=== PATIENT | male | born 1980 ===

== ENCOUNTER 2017-01-07 13:11 | Emergency (ER) | payer OTHER ==
[2017-01-07 13:25] VITALS: RESP 16
--- NOTE | 2017-01-07 14:12 | C.PDOC ---
History Of Present Illness 36 year old male presents to the ED seeking a wound check of the left index finger. Patient states he cut his finger with a saw while at work three days ago and was seen in the hospital. He denies any pain or new trauma. Time Seen by Provider: 01/07/17 13:30 Chief Complaint (Nursing): Abnormal Skin Integrity History Per: Patient History/Exam Limitations: no limitations Onset/Duration Of Symptoms: Days (initial injury occurred three days ago) Current Symptoms Are (Timing): Gone Location Of Injury: Left: Hand (index finger) Quality Of Symptoms: denies: Painful, Itching, Swollen, Draining Recent travel outside of the [place]: No Additional History Per: Prior Records Past Medical History Reviewed: Historical Data, Nursing Documentation, Vital Signs Vital Signs: Last Vital Signs Temp 98.0 F 01/07/17 14:16 Pulse 86 01/07/17 14:16 Resp 16 01/07/17 14:16 BP 122/72 01/07/17 14:16 Pulse Ox 99 01/07/17 14:16 Family History: States: Unknown Family Hx - Social History Hx Alcohol Use: No Hx Substance Use: No - Immunization History Hx Tetanus Toxoid Vaccination: Yes (11/2016) Review Of Systems Constitutional: Negative for: Fever, Chills Cardiovascular: Negative for: Chest Pain Respiratory: Negative for: Shortness of Breath Gastrointestinal: Negative for: Nausea, Vomiting Musculoskeletal: Positive for: Other (wound check of laceration to left index finger. Avulsion to tip of left index finger and some of the finger nail. Wound has non-adhesive dressing. ). Negative for: Hand Pain Physical Exam - Physical Exam Appears: Non-toxic, No Acute Distress Skin: Warm, Dry Head: Atraumatic Eye(s): bilateral: Normal Inspection, PERRL, EOMI Oral Mucosa: Moist Neck: Supple Chest: Symmetrical Cardiovascular: Rhythm Regular Respiratory: No Accessory Muscle Use Extremity: Capillary Refill (good capillary refill, less than two seconds ), Other (Clean wound and dressing. Finger tip amputation. No sutures and no active bleeding. ) Neurological/Psych: Oriented x3, Normal Speech, Normal Cognition, Normal Cranial Nerves, Normal Motor, Normal Sensation ED Course And Treatment O2 Sat by Pulse Oximetry: 98 (room air) Progress Note: Wound was washed with sterile saline and redressed with non- adhesive dressing. Disposition Counseled Patient/Family Regarding: Diagnosis, Need For Followup - Disposition Referrals: [facility] at [facility] [Outside] Disposition: HOME/ ROUTINE Disposition Time: 14:10 Condition: STABLE Instructions: Skin Avulsion (ED) Forms: Gen Discharge Inst Serbian - Clinical Impression Clinical Impression: Avulsion of skin of finger - Scribe Statement The provider has reviewed the documentation as recorded by the Scribe Kathrin Coronado All medical record entries made by the Kamronibe were at my direction and personally dictated by me. I have reviewed the chart and agree that the record accurately reflects my personal performance of the history, physical exam, medical decision making, and the department course for this patient. I have also personally directed, reviewed, and agree with the discharge instructions and disposition.
[2017-01-07 14:17] VITALS: BP 122/72; PULSE 86; TEMP 98
[2017-01-07 19:40] VITALS: O2SAT 98
== END 2017-01-07 14:17 | disposition home or self-care (01) ==
LOC: C.ER 13:11
DX: Z48.00 Encounter for change or removal of nonsurgical wound dressing (principal)

== ENCOUNTER 2017-01-11 12:59 | Emergency (ER) | payer OTHER ==
[2017-01-11 13:34] VITALS: BP 100/69; PULSE 88; RESP 20; TEMP 98.6; O2SAT 100
--- NOTE | 2017-01-11 14:39 | C.PDOC ---
History Of Present Illness 36 yo male come in for scheduled wound check of Left middle finger laceration sustained 1 week ago. Pt admits, was seen initially at [facility] where wound was cleaned, received tetanus. Pt come for wound re-check. Otherwise, pt denies fever, chills, wound redness or pain, draining or any other active complaints. Ambulate to Ed for evaluation, not in any apparent distress. Time Seen by Provider: 01/11/17 14:06 Chief Complaint (Nursing): Wound Check History Per: Patient Past Medical History Reviewed: Historical Data, Nursing Documentation, Vital Signs Vital Signs: Last Vital Signs Temp 98.6 F 01/11/17 13:29 Pulse 88 01/11/17 13:29 Resp 20 01/11/17 13:29 BP 100/69 01/11/17 13:29 Pulse Ox 100 01/11/17 13:29 - Medical History PMH: No Chronic Diseases Family History: States: Unknown Family Hx - Social History Hx Alcohol Use: No Hx Substance Use: No - Immunization History Hx Tetanus Toxoid Vaccination: Yes (11/2016) Review Of Systems Except As Marked, All Systems Reviewed And Found Negative. Constitutional: Negative for: Fever, Chills Skin: Positive for: Lesions Neurological: Negative for: Weakness, Numbness Physical Exam - Physical Exam Appears: Well, Non-toxic, No Acute Distress Skin: Normal Color, Warm, Other ((+)Left 3rd distal phalanx well healing open wound tip of finger, covered by dry crust, Mild edema and erythema over Left 3rd tip of finger. No wound draining, no proximal streaking or flactulance. FAROM of left 3rd finger, no neurovascular deficits.) Extremity: Normal ROM (Left hand), No Deformity, No Swelling ED Course And Treatment O2 Sat by Pulse Oximetry: 100 Progress Note: On re-eavluation, pt is afberile, hemodynamicaly stable. non- toxic. Left hand: well healing wound over the tip of Left 3rd finger. No evidence of cellulitis. FAROM, no neurovascular deficits. Pt advised on wound care and ref. to f/u with PMD, hand specialist in 2-3 days for re-eavl. return to ED if any worsening or new changes. Disposition Counseled Patient/Family Regarding: Diagnosis, Need For Followup, Rx Given - Disposition Referrals: Santy Parnell MD [Staff Provider] - Disposition: HOME/ ROUTINE Disposition Time: 14:01 Condition: STABLE Additional Instructions: Clean wound daily with peroxide and apply antibiotic cream topically Follow up with PMD, hand specialist in 2-3 days for re-evaluation. Return to ED if any worsening or new changes. Prescriptions: Bacitracin OINT 1 applic TP BID #1 tube Instructions: Laceration (ED) Forms: [employer] (Kinyarwanda) Print Language: DANISH - Clinical Impression Clinical Impression: Laceration re-check
== END 2017-01-11 14:51 | disposition home or self-care (01) ==
LOC: C.ER 12:59
DX: Z48.00 Encounter for change or removal of nonsurgical wound dressing (principal)

== ENCOUNTER 2017-01-28 12:04 | Emergency (ER) | payer OTHER ==
[2017-01-28 12:18] VITALS: BP 112/72; PULSE 58; RESP 20; TEMP 99; O2SAT 99
--- NOTE | 2017-01-28 12:54 | C.PDOC ---
History Of Present Illness 36 y/o male presents to ED for wound check on left 3rd digit. Patient came to ED to make sure wound is healing properly. No other complaints at this time Time Seen by Provider: 01/28/17 12:37 Chief Complaint (Nursing): Upper Extremity Problem/Injury History Per: Patient History/Exam Limitations: no limitations Onset/Duration Of Symptoms: Days Current Symptoms Are (Timing): Still Present Past Medical History Reviewed: Historical Data, Nursing Documentation, Vital Signs Vital Signs: Last Vital Signs Temp 99 F 01/28/17 12:17 Pulse 58 L 01/28/17 12:17 Resp 20 01/28/17 12:17 BP 112/72 01/28/17 12:17 Pulse Ox 99 01/28/17 13:33 Family History: States: Unknown Family Hx - Social History Hx Alcohol Use: No Hx Substance Use: No - Immunization History Hx Tetanus Toxoid Vaccination: Yes (11/2016) Review Of Systems Except As Marked, All Systems Reviewed And Found Negative. Musculoskeletal: Negative for: Hand Pain Skin: Negative for: Rash Physical Exam - Physical Exam Additional Physical Exam Comments: Constitutional: No acute distress. Head: Normocephalic. Atraumatic. Eyes: PERRL. ENT: Moist mucous membranes. Neck: Supple. Cardiovascular: Regular rate. Radial pulse 2+ bilaterally. Chest: No tenderness. Respiratory: Clear to auscultation bilaterally. GI: Soft. Nontender. Nondistended. Back: No CVA tenderness. Musculoskeletal: No tenderness or swelling of extremities. Skin: No rash. Well healing Avulsion to tip of left 3rd finger Neurologic: Alert, no focal deficit. ED Course And Treatment O2 Sat by Pulse Oximetry: 99 (RA) Pulse Ox Interpretation: Normal Disposition - Disposition Referrals: [facility] [Outside] Disposition: HOME/ ROUTINE Disposition Time: 13:17 Condition: STABLE Instructions: Acute Wound Care (ED) Forms: [employer] (Tuvaluan) - Clinical Impression Clinical Impression: Avulsion of skin of finger - PA / UNIX ANALYST / Resident Statement MD/DO has reviewed & agrees with the documentation as recorded. - Scribe Statement The provider has reviewed the documentation as recorded by the Kamronibguerline Barry All medical record entries made by the Scribe were at my direction and personally dictated by me. I have reviewed the chart and agree that the record accurately reflects my personal performance of the history, physical exam, medical decision making, and the department course for this patient. I have also personally directed, reviewed, and agree with the discharge instructions and disposition.
== END 2017-01-28 13:46 | disposition home or self-care (01) ==
LOC: C.ER 12:04
DX: Z48.00 Encounter for change or removal of nonsurgical wound dressing (principal)

== ENCOUNTER 2018-10-18 17:48 | Emergency (ER) | payer OTHER ==
[2018-10-18 17:53] VITALS: BP 122/77; PULSE 90; TEMP 97.7; O2SAT 97
--- NOTE | 2018-10-18 18:14 | C.PDOC ---
History Of Present Illness Patient is a 38 year old male who presents to the ED c/o penile and suprapubic lesions for the past 5 days. Patient admits to burning and dysuria. VIA TRANS PENILE, SUPRPUBIC LESIONS X 5 DAYS. +BURNING. +DYSURIA EXAM NONTOXIC RN ANTWAN NURSING ATTENDANT. MULT VESICULAR LESIONS SUPRAPUBIC, PENIS C/W HERPES. NO PENILE DC MDM PT ADVISED IS INFECTIOUS AND TO AVOID SEXUAL CONTACT UNTIL LESIONS RESOLVED. STD CLINIC REFERRAL GIVEN Time Seen by Provider: 10/18/18 18:03 Chief Complaint (Nursing): Abnormal Skin Integrity History Per: Patient History/Exam Limitations: no limitations Onset/Duration Of Symptoms: Days (5) Current Symptoms Are (Timing): Still Present Quality Of Discomfort: Burning Associated Symptoms: Urinary Symptoms Recent travel outside of the [place]: No Additional History Per: Patient Past Medical History Reviewed: Historical Data, Nursing Documentation, Vital Signs Vital Signs: Last Vital Signs Temp 97.7 F 10/18/18 17:51 Pulse 90 10/18/18 17:51 Resp 20 10/18/18 17:51 BP 122/77 10/18/18 17:51 Pulse Ox 97 10/18/18 17:51 Primary Care Provider: Non [facility] Provider, - Medical History PMH: No Chronic Diseases Surgical History: No Surg Hx Family History: States: Unknown Family Hx - Social History Hx Alcohol Use: No Hx Substance Use: No - Immunization History Hx Tetanus Toxoid Vaccination: Yes (11/2016) Review Of Systems Except As Marked, All Systems Reviewed And Found Negative. Genitourinary: Positive for: Dysuria, Penile Pain (penile and suprapubic lesions) Physical Exam - Physical Exam Appears: Non-toxic, No Acute Distress Skin: Warm, Dry Head: Atraumatic, Normacephalic Eye(s): bilateral: Normal Inspection Cardiovascular: Rhythm Regular, No Murmur Respiratory: Other (NARD) Male Genital: Other (TREMAINE MONCADA NURSING ATTENDANT. MULT VESICULAR LESIONS SUPRAPUBIC, PENIS C/W HERPES. NO PENILE DC) Neurological/Psych: Oriented x3, Normal Speech, Normal Cognition ED Course And Treatment O2 Sat by Pulse Oximetry: 97 (on RA) Pulse Ox Interpretation: Normal Progress Note: Plan: Labs. Urine Culture. UA. Zithromax 1000mg PO. Rocephin 250mg IM Disposition Counseled Patient/Family Regarding: Diagnosis, Need For Followup - Disposition Referrals: [facility] [Outside] [facility] [Outside] [facility] [Other] Disposition: HOME/ ROUTINE Disposition Time: 18:12 Condition: GOOD Instructions: Genital Herpes (DC) Forms: [employer] Connect (Slovak) Print Language: TURKMEN - Clinical Impression Clinical Impression: Genital herpes - Scribe Statement The provider has reviewed the documentation as recorded by the Letty Magana All medical record entries made by the Letty were at my direction and pe rsonally dictated by me. I have reviewed the chart and agree that the record accurately reflects my personal performance of the history, physical exam, medical decision making, and the department course for this patient. I have also personally directed, reviewed, and agree with the discharge instructions and disposition.
[2018-10-18] MEDS ORDERED: cefTRIAXone (Rocephin) 250 mg Inj IM STA (18:15)
[2018-10-18 18:24] LABS: URINE BILIRUBIN NEGATIVE (NEGATIVE); URINE BLOOD NEGATIVE (NEGATIVE); URINE CLARITY Hazy (Clear); URINE COLOR Yellow (YELLOW); URINE GLUCOSE (UA) NORMAL (Normal); URINE LEUKOCYTE ESTERASE NEG Leu/uL (Negative); URINE PROTEIN NEGATIVE (NEGATIVE); URINE UROBILINOGEN NORMAL mg/dL (0.2-1.0)
[2018-10-18 18:37] VITALS: RESP 18
== END 2018-10-18 18:37 | disposition home or self-care (01) ==
LOC: C.ER 17:48
DX: A60.00 Herpesviral infection of urogenital system, unspecified (principal)
CPT/HCPCS: 81001; 87086; 87491; 87591; 96372; 99285; J0696